=== PATIENT | female | born 1950 | race Hispanic/Latino ===

== ENCOUNTER 2017-03-07 13:43 | Emergency (ER) | payer MEDICARE, MEDICAID ==
[2017-03-07] MEDS ORDERED: Sodium Chloride 0.9% 100 ML ONE (13:49)
[2017-03-07] MEDS ORDERED: Pantoprazole 40 MG VIAL ONE (13:49)
[2017-03-07 13:57] LABS: #Basophils 0.1 thou/uL (0.0-0.2); #Eosinphils 0.1 thou/uL (0.0-0.7); #Lymphocytes 2.3 thou/uL (1.20-3.40); #Monocytes 0.4 thou/uL (0.11-0.59); %Basophils 1.3 % (0.0-1.0); %Lymphocytes 29.5 % (21.0-51.0); %Monocytes 5.1 % (0.0-10.0); %Neutrophils 63.1 % (42.0-75.0); Hemoglobin 11.1 g/dL (12.0-16.0); Mean Corpuscular HGB CONC 33.5 g/dL (32.0-36.0); Mean Corpuscular Hemoglobin 32.6 pg (27.0-31.0); Mean Corpuscular Volume 97.4 fl (81.0-99.0); Mean Platelet Volume 6.6 fL (7.4-10.4); Platelet Count 238 thou/uL (130-400); White Blood Cell (WBC) Count 7.9 thou/uL (4.8-10.8)
[2017-03-07 14:04] LABS: INR-International Normal Ratio 0.9; PTT 30.3 SEC (22.9-36.1); Prothrombin Time 12.7 SEC (12.0-14.7)
[2017-03-07 14:12] LABS: ALT (SGPT) 20 U/L (8-55); AST (SGOT) 17 U/L (5-34); Albumin 4.3 g/dL (3.4-4.8); Alkaline Phosphatase 54 U/L (40-150); Anion Gap 15 mmol/L (10-20); BUN (Urea Nitrogen) 14 mg/dL (9.8-20.1); Bilirubin, Total 0.3 mg/dL (0.2-1.2); Calc. Creatinine Clearance 0 mL/min (70-130); Carbon Dioxide 24 mmol/L (23-31); Chloride 104 mmol/L (98-107); Estimated GFR-MDRD 49; Globulin 2.9 g/dL (2.4-3.5); Glucose 186 mg/dL (80-115); Potassium 4.1 mmol/L (3.5-5.1); Protein, Total 7.2 g/dL (6.0-8.3); Sodium 139 mmol/L (136-145)
== END 2017-03-07 14:20 | disposition short-term general hospital (02) ==
LOC: BURERS 13:43
DX: K92.2 Gastrointestinal hemorrhage, unspecified (principal); I10 Essential (primary) hypertension; E78.5 Hyperlipidemia, unspecified; E11.9 Type 2 diabetes mellitus without complications; Z79.899 Other long term (current) drug therapy
CPT/HCPCS: 80053; 82274; 85025; 85610; 85730; 94760; 96365; C9113; J7050